=== PATIENT | female | born 1955 | race Asian ===

== ENCOUNTER 2016-08-19 00:26 | Emergency (ER) | payer OTHER ==
[~2016-08-19] VITALS: Ht 144.8 cm; Wt 52.3 kg
[~2016-08-19 00:26] MED LIST: ASPI81TA2 PO; ATEN50TA PO; LOPE1LIQ9 PO; ONDA4TAB9 PO; SIMV20TA4 PO; ZES20T PO
[2016-08-19 00:29] VITALS: BP 161/98; PULSE 91; RESP 18; O2SAT 98
--- NOTE | 2016-08-19 00:38 | ED.REPORT ---
HPI-NVD Date of Service August 19, 2016 ED Provider: Clive Mckeon MD The patient is a 60 year old female with a history of diabetes and hypertension who presents to the ED accompanied by her with diarrhea onset 1200 today. Associated symptoms include two days of diaphoresis, low back pain, generalized weakness, and nausea which has since resolved. The patient denies dysuria or other symptoms. She has no ill contacts. Six days ago the patient was placed on an antibiotic for an infected ant bite. Two days ago the patient returned from a trip to the [facility] and feels she may have eaten some bad food while on the flight home. The patient has had similar symptoms in the past. Nursing Notes Stated Complaint: DIARRHEA Chief Complaint: Female Abdominal Pain Nursing Notes Reviewed: Yes (Handshake, meds not reconciled) Allergies: Coded Allergies: codeine (Verified Adverse Reaction, Mild, Headache, 08/19/16) Scheduled Aspirin-Expunged Drug, Do Not Renew! (Aspirin-Expunged Drug, Do Not Renew!) 81 Mg Tablet 81 MG PO DAILY STARTED TODAY Atenolol-Expunged Drug, Do Not Renew! (Atenolol-Expunged Drug, Do Not Renew!) 50 Mg Tablet 100 MG PO DAILY Lisinopril-Expunged Drug, Do Not Renew! (Lisinopril-Expunged Drug, Do Not Renew! ) 20 Mg Tablet 20 MG PO DAILY Simvastatin Inactive Drug Do Not Use (Simvastatin-Expunged Drug, Choose New Med! ) 20 Mg Tablet 20 MG PO HS Scheduled PRN Loperamide Liquid (Imodium A-D Liquid) 1 Mg/7.5 Ml Liquid 1 MG PO BID PRN PRN For Diarrhea or Loose Stool Ondansetron ODT (Zofran ODT) 4 Mg Tablet 4 MG PO Q4H PRN PRN For Nausea General Time Seen by MD: 00:37 Chief Complaint Diarrhea Hx Obtained From: Patient Arrived By: Walk-in Onset Occurred: 2 days ago Symptom Duration: Since onset Location: : Other (Low back) Quality: Painful Severity: Current: Moderate Severity: Maximum: Moderate Pertinent Negative: Relieved by nothing Related History: Reports: Diabetes mellitus Recent Healthcare: No recent doctor visit Similar Sx Previous: Yes Past Medical History Past Medical History Staph infection Hypertension Reports: Diabetes mellitus Past Surgical History None reported Family History father of an aneurysm Smoking History Current Every Day Smoker Ambulatory Status Independent Review of Systems Constitutional: Reports: Weakness - generalized, Denies: Fever GI: Reports: Diarrhea, Nausea (Resolved), Denies: Vomiting Skin: Reports Diaphoresis Complete sys rev & neg: except as marked. Respiratory: Denies: Non-productive cough, Shortness of breath Female: Denies: Dysuria Musculoskeletal: Reports: Back pain Physical Exam Initial Vital Signs Vital Signs (First) Date Time Temp Pulse Resp B/P Pulse Ox O2 Delivery O2 Flow Rate FiO2 08/19/16 00:29 36.7 91 18 161/98 98 Room Air Initial VS: Reviewed, Vital signs normal Head / Eyes: Atraumatic, Normocephalic ENT: Conjunctiva normal, No scleral icterus Neck: Supple, Full range of motion Skin: Warm, Dry, No cyanosis Neurologic: Alert, Oriented, Nonfocal Psychiatric: Mood/affect normal, Behavior normal, Normal thought content General/Constitutional: Awake, Alert Fatigued Abdomen: Soft, Non-tender Lower Extremity / Pelvis / MS: No deformity Healing wound to right ankle without signs of infection Re-Eval/Medical Decision Med Decision/Clinical Course This is a 60-year-old female presents complaining of some chills, cramps, and diarrhea-up to every 30 minutes today. She just recently returned from the [facility], although from an area that is low to no risk ([place]) for malaria, and she suspicious of a food exposure on the airline Thursday night when she returned. She also is on antibiotics for recent cellulitis of the foot, with a cellulitis having resolved-she does not know the name the antibiotic. She has no previous history of C Diff risk factors. She does have a history of previous ED visit in October for November nonspecific diarrhea that resolved with supportive therapy. On exam she appears well, she is not febrile or clinically toxic. Her abdomen is soft and nontender without guarding or rebound. No evidence of an acute surgical process evident. Given the wide differential for etiologies and recent travel history, labs are being obtained. The patient is advised that the most likely process would be performing screening labs, while hoping to obtain a stool sample was sent for PCR panel which will be resulted this early afternoon. And that if the patient's blood work is normal and she continues to do well clinically, would likely discharge with a plan to follow up with a phone call with results of the PCR stool studies. Patient's agreeable and understandable to this. She is being turned over to Dr. Chen at change of shift pending laboratory. Source of Hx: Old records Re-Evaluation/Progress : Time of Eval: 02:00 Patient Status: Condition improved Re-Evaluation/Progress Note: Discussed with patient plan for transfer of care to Dr. Chen at change of shift. Counseled Regarding: Other (Transfer of care to Dr. Chen) Discharge & Departure Shift Change Sign-Out Patient Care Transferred: Yes (Dr. Chen) Discussed Complaint(s): Yes Laboratory Evaluation: Ordered, not yet done Response to Therapy: Improved Impression: Primary Impression: Diarrhea Diarrhea type: unspecified type Qualified Code: R19.7 - Diarrhea, unspecified Disposition: Home Referrals: OTHER,PHYSICIAN (PCP) Care Transferred to: Dr. Chen Care Transferred at: 01:45 Scribe Attestation Portions of this note were transcribed by Anyaa Salcido. I, Dr. Mckeon, personally performed the history, physical exam, and medical decision-making; I reviewed and confirmed the accuracy of the information in the transcribed note. Signed by: Ligia Mejía, 08/19/2016, 01:35 Clive Mckeon MD August 19, 2016 00:38 ANAYA SALCIDO August 19, 2016 00:46
[2016-08-19] MEDS ORDERED: 0.9% Sodium Chloride 1,000 ML IV ONE (00:50)
[2016-08-19 01:36] LABS: BASOPHILS % (AUTO) 0.2 % (0-3); EOSINOPHILS % (AUTO) 0 % (0-5); MONOCYTES % (AUTO) 5.6 % (4-12); Mean Corpuscular Hemoglobin 27.3 pg (27.0-35.0); Mean Corpuscular Volume 81.3 fL (81-100); NEUTROPHILS % (AUTO) 83.9 % (40-74); Platelet Count 209 bil/L (150-400)
[2016-08-19 01:49] LABS: APPEARANCE,URINE CLEAR (CLEAR,HAZY); COLOR,URINE YELLOW (YELLOW); OCCULT BLOOD,URINE NEGATIVE (NEGATIVE); UROBILINOGEN,URINE NORMAL (NORMAL)
[2016-08-19 02:50] VITALS: BP 150/78; PULSE 84; RESP 16; O2SAT 99
[2016-08-19 03:18] VITALS: BP 143/85; PULSE 86
[2016-08-19 03:20] VITALS: BP 157/90; PULSE 94
[2016-08-19 03:23] VITALS: BP 125/83; PULSE 92
[2016-08-19 03:31] VITALS: BP 125/83; PULSE 92; RESP 16; O2SAT 99
== END 2016-08-19 03:31 | disposition home or self-care (01) ==
LOC: SED 00:26
DX: R19.7 Diarrhea, unspecified (principal); M54.5 Low back pain; R53.1 Weakness; R11.0 Nausea; R61 Generalized hyperhidrosis; I10 Essential (primary) hypertension; E11.9 Type 2 diabetes mellitus without complications; F17.200 Nicotine dependence, unspecified, uncomplicated; Z88.5 Allergy status to narcotic agent
CPT/HCPCS: 36415; 80053; 81000; 83605; 85025; 87040; 87507; 96360; 99284; J7030

== ENCOUNTER 2016-08-23 06:17 | Inpatient (IN) | payer OTHER ==
[2016-08-23] VITALS (8 sets, daily range): BP systolic 88–115; BP diastolic 54–69; PULSE 69–82; RESP 16–22; O2SAT 97–100
[~2016-08-23] VITALS: Ht 144.8 cm; Wt 51.9 kg
--- NOTE | 2016-08-23 06:43 | ED.REPORT ---
HPI-Abd Pain F 40 and Over Date of Service Aug 23, 2016 ED Provider: Dm Holcomb Patient is a 60 year old female with a hx of HTN and DM who presents to the ED complaining of intermittent diarrhea onset one week ago. Her last episode of diarrhea was this morning. Associated symptoms include abdominal pain (since resolved), nausea, vomiting, back pain (since resolved), lightheadedness upon standing, hives (onset 2-3 days ago), facial swelling, and chills. She denies difficulty breathing, hematochezia, hematemesis, melena, fever, headache, dysuria, or any other symptoms. She was put on cefpodoxime for a insect bite she received in the [employer] [facility]. The bug bite was on her R foot. She came [place] the [place] before the onset of her symptoms. She was seen in the department 6 days ago for her symptoms. She takes metformin and statin daily. She has been taking Imodium and Zyrtec for her symptoms. Nursing Notes Stated Complaint: SWELLING Chief Complaint: Female Abdominal Pain Nursing Notes Reviewed: Yes Allergies: Coded Allergies: codeine (Verified Adverse Reaction, Mild, Headache, 08/23/16) Scheduled Aspirin-Expunged Drug, Do Not Renew! (Aspirin-Expunged Drug, Do Not Renew!) 81 Mg Tablet 81 MG PO DAILY STARTED TODAY Atenolol-Expunged Drug, Do Not Renew! (Atenolol-Expunged Drug, Do Not Renew!) 50 Mg Tablet 100 MG PO DAILY Lisinopril-Expunged Drug, Do Not Renew! (Lisinopril-Expunged Drug, Do Not Renew! ) 20 Mg Tablet 20 MG PO DAILY Simvastatin Inactive Drug Do Not Use (Simvastatin-Expunged Drug, Choose New Med! ) 20 Mg Tablet 20 MG PO HS Scheduled PRN Loperamide Liquid (Imodium A-D Liquid) 1 Mg/7.5 Ml Liquid 1 MG PO BID PRN PRN For Diarrhea or Loose Stool Ondansetron ODT (Zofran ODT) 4 Mg Tablet 4 MG PO Q4H PRN PRN For Nausea General Time Seen by MD: 06:42 Chief Complaint Diarrhea mild Hx Obtained From: Patient, Spouse Arrived By: Walk-in Sudden in Onset?: Yes Onset Occurred: 1 week ago Symptom Duration: Since onset Recent Healthcare: Recent doctor visit, Previous diagnosis Risk Factors )( AAA Risk Stratification Hypertension SmokingNo Prior AAA Risk factors reviewed Past Medical History Past Medical History Staph infection Hypertension hypercholesteremia Reports: Diabetes mellitus Past Surgical History Hand Reports: Appendectomy, Cholecystectomy Family History father of an aneurysm Smoking History Light Tobacco Smoker Social History Alcohol Use: Denies alcohol use (Rare) Other Social History: Good social support, Ambulatory Status Independent Review of Systems + facial swelling Constitutional: Reports: Chills, Denies: Fever Respiratory: Denies: Shortness of breath GI: Reports: Abdominal pain (Resolved ), Diarrhea, Nausea, Vomiting, Denies: Hematemesis, Hematochezia, Melena Female: Denies: Dysuria Musculoskeletal: Reports: Back pain (Resolved ) Complete sys rev & neg: except as marked. Allergy / Immune: Reports: Hives Neurologic: Reports: Lightheaded, Denies: Headache Physical Exam Vital Signs Vital Signs (First) Date Time Temp Pulse Resp B/P Pulse Ox O2 Delivery O2 Flow Rate FiO2 08/23/16 06:22 36.0 79 22 88/59 99 Room Air Initial VS: Reviewed Head / Eyes: Atraumatic, Normocephalic Neck: Full range of motion Neurologic: Alert, Oriented, Nonfocal General/Constitutional: Awake, Alert, No acute distress, Well developed Respiratory / Chest: Breath sounds NL, Breath sounds = bilat, No respiratory distress Cardiovascular: Heart rate NL, Regular rhythm, Heart sounds NL Abdomen: Soft, Non-tender Back: Atraumatic Skin: Warm, Dry Color / Condition: Positive: Rash present Rash / Lesion Notes: Hives Ankle / Foot: Neurologic intact, Vascular intact Scab on dorsum of R foot, well healed Interpretation & Diagnostics Lab Results Interpretation Result Diagram: 08/23/16 0725 08/23/16 0725 Test 08/23/16 07:25 White Blood Count 10.7th/mm3 (3.8-10.1) Red Blood Count 5.07mil/mm3 (3.90-5.20) Hemoglobin 13.6g/dL (12.0-15.6) Hematocrit 40.4% (35.0-46.0) Mean Corpuscular Volume 79.7fL (81-100) Mean Corpuscular Hemoglobin 26.8pg (27.0-35.0) Mean Corpuscular Hemoglobin Concent 33.7% (32.0-37.0) Red Cell Distribution Width 13.7% (12.3-15.4) Platelet Count 297bil/L (150-400) Neutrophils (%) (Auto) 86.8% (40-74) Lymphocytes (%) (Auto) 8.8% (14-46) Monocytes (%) (Auto) 3.0% (4-12) Eosinophils (%) (Auto) 0.7% (0-5) Basophils (%) (Auto) 0.1% (0-3) Sodium Level 128mEq/L (134-144) Potassium Level 3.9mEq/L (3.5-5.2) Chloride Level 92mEq/L (97-108) Carbon Dioxide Level 19mmol/L (18-29) Blood Urea Nitrogen 13mg/dL (8-27) Creatinine 1.23mg/dL (0.57-1.00) Estimat Glomerular Filtration Rate 63mL/min (>59) Glucose Level 211mg/dL (60-99) Lactic Acid Level 1.7mmol/L (0.4-2.0) Calcium Level 8.3mg/dL (8.5-10.1) Magnesium Level 1.6mg/dL (1.6-2.6) Total Bilirubin 1.4mg/dL (0.0-1.2) Aspartate Amino Transf (AST/SGOT) 36U/L (0-50) Alanine Aminotransferase (ALT/SGPT) 31U/L (0-32) Alkaline Phosphatase 77U/L (25-165) Total Protein 5.9g/dL (6.4-8.4) Albumin 2.9g/dL (3.4-5.0) Lipase 30U/L (13-60) ECG Interpretation ECG Interpretation: Sinus rate 76 Atrial premature complex Time: 07:06 Interpreted by: ED physician Re-Eval/Medical Decision Re-Evaluation/Progress #1: Time of Eval: 09:18 Re-Evaluation/Progress Note: Rechecked patient. She is requesting to be admitted. Discussed plan for admission. Patient understands and agrees with plan. All questions addressed at this time. Re-Evaluation/Progress #2: Time of Eval: 10:00 Re-Evaluation/Progress Note: Rechecked patient. Still unable to obtain IV. Consultation : Referral / Consult Name: Americo Cerda DO Consulted With: Hospitalist Call Returned at: 10:14 Acute Coordinator: Will see patient, Agrees with eval, Agrees with plan, Accepts admit Note: Discussed pt case. Accepts admit. Counseled Regarding: Diagnosis, Lab results, Need for admission Discharge & Departure Primary Impression: Dehydration Additional Impression: Gastroenteritis Disposition: ADMITTED TO HOSPITAL Discharge Condition All VS Reviewed: Yes Condition: Stable (ERASED) Referrals: OTHER,PHYSICIAN (PCP) (Family) Scribe Attestation Portions of this note were transcribed by Marc Shipley. I, Dr. Holcomb personally performed the history, physical exam and medical decision-making; I reviewed and confirmed the accuracy of the information in the transcribed note. Signed by: Marc Shipley 08/23/16, 1053 Dm Holcomb MD Aug 23, 2016 06:43 MARC SHIPLEY Aug 23, 2016 06:50
[2016-08-23] MEDS ORDERED: Ondansetron 2 mg/mL 2 mL Inj IVPUSH PRN (06:50)
[2016-08-23] MEDS ORDERED: Pantoprazole 4 mg/mL 10 mL Inj IVPUSH ONE (06:50)
[2016-08-23] MEDS ORDERED: 0.9% Sodium Chloride 1,000 ML IV ONE (06:50)
[2016-08-23] MEDS ORDERED: diphenhydrAMINE 25 mg Capsule PO ONE (06:55)
[2016-08-23 07:34] LABS: BASOPHILS % (AUTO) 0.1 % (0-3); EOSINOPHILS % (AUTO) 0.7 % (0-5); Mean Corpuscular Hemoglobin 26.8 pg (27.0-35.0); Mean Corpuscular Volume 79.7 fL (81-100); NEUTROPHILS % (AUTO) 86.8 % (40-74); Platelet Count 297 bil/L (150-400)
[2016-08-23] MEDS ORDERED: Ondansetron 2 mg/mL 2 mL Inj IVPUSH ONE (07:40)
[2016-08-23 07:55] LABS: Magnesium 1.6 mg/dL (1.6-2.6)
[2016-08-23] MEDS ORDERED: Sodium Chloride LOK Flush 10 mL Syringe IVFLUSH PRN ×2 (11:00)
[2016-08-23] MEDS ORDERED: Alum-Mag Hydrox-Simeth 30 mL Suspension PO PRN (11:00)
--- NOTE | 2016-08-23 12:17 | DRSVH ---
PROCEDURE: X-RAY PICC LINE PLACEMENT BY NURSE ([id number]) INDICATIONS: PICC, for dehydration/hypotension COMPARISON: None. FINDINGS: PICC was placed by the intravenous therapy team from the left side. Fluoroscopic spot maykel m demonstrates tip of PICC in the distal SVC. IMPRESSION: Tip of PICC lies within the distal SVC. Dictated by: Antoinette Momin MD, PhD on 08/23/2016 at 12:16 Approved by: Antoinette Momin MD, PhD on 08/23/2016 at 12:16
--- NOTE | 2016-08-23 12:33 | PCM.HPMED ---
Subjective Date of Service Aug 23, 2016 Primary Provider: Admitting Physician: Americo Cerda DO Primary Care Physician: Other,Physician Attending Physician: Americo Cerda DO Chief Complaint: Refractory nausea and vomiting in addition to persistent diarrhea History of Present Illness: Patient is a 60-year-old female past medical history significant for hypertension and diabetes who recently returned from the [facility] on vacation who is complaining now 1 week history of diarrhea refractory nausea with some vomiting. Has been able to tolerate almost nothing by mouth, and drinking little and eating even less. She had been seen in urgent care couple of days prior, and at that time was prescribed Zofran is provided little relief from nausea in addition to Imodium consult to help with diarrhea but also has not been effective. She denies any fever or chills however. Additional pertinent medical history includes treatment for multiple bug bites sustained in the [facility], which she sought treatment with a doctor 2 days prior to flying back to [place]. She was prescribed a first generation cephalic border for concern cellulitis on foot, but as she noted little in the way of symptoms he did not complete this course. Currently she still feels a little bit nauseated, which continue to have a loose watery stools. She denies any blood or pus in stools. Vomitus is generally recently consumed food or fluids, again denies any blood present in vomitus. She can now no sick contacts. Given having abdominal pain worse at onset but this is now improved, in addition to back pain also improved. She noted chills earlier this week as well, and at times experience sweats, and has no reported fever. Denies any palpitations or chest pain any time, denies any wheezing or shortness of breath. Review of Systems: A 10 point review of systems was conducted and entirely negative excepting pertinent positives and negatives included above history of present illness Allergies Coded Allergies: codeine (Verified Adverse Reaction, Mild, Headache, 08/23/16) Home Medications Aspirin- 81 Mg Tablet 81 MG PO DAILY Atenolol 50 Mg Tablet 100 MG PO DAILY Lisinopril 20 Mg Tablet 20 MG PO DAILY Simvastatin 20 Mg Tablet 20 MG PO HS Scheduled PRN Loperamide Liquid (Imodium A-D Liquid) 1 Mg/7.5 Ml Liquid 1 MG PO BID PRN PRN For Diarrhea or Loose Stool Ondansetron ODT (Zofran ODT) 4 Mg Tablet 4 MG PO Q4H PRN PRN For Nausea PMH Staph infection Hypertension hypercholesteremia Diabetes mellitus Surgical History Hand Appendectomy Cholecystectomy Social History Hx Alcohol Use: No Hx Substance Use: No Smoking Status: Light Tobacco Smoker Exam Vital Signs Vital Sign - Last Date Time Temp Pulse Resp B/P Pulse Ox O2 Delivery O2 Flow Rate FiO2 08/23/16 11:21 36.6 75 19 94/54 100 Room Air General: Alert, Oriented X3, Cooperative, Moderate Distress Eyes: PERRLA, EOMI Mouth: Mucous Membranes Dry Neck: Supple Chest & Lungs: Clear to auscultation & percussion, No adventitious breath sounds Cardiovascular: Regular Rate/Rhythm Abdomen: Non-tender, Non-distended Extremities: No cyanosis/clubbing/edma bilat Skin: Other (skin is dry with multiple excoriations on upper arm secondary to scratching. When he white skin visible. Some areas of induration/edema related to healing bug bites also noted on forearms/ foot though has mild irritation does not appear infected or cellulitic. ) Neurological: Grossly Neurologically Intact Lab and Diagnostics Result Diagram: 08/23/1672408/23/16724 Assessment & Plan This 60-year-old female presenting with abdominal pain and nausea and vomiting 1 week refractory to the saul therapies, admitted at this time for volume depletion and supportive care condition to further evaluation. #. Refractory nausea and vomiting with abdominal pain - Appears to be acute viral gastroenteritis, however bacterial etiology is possible - Dual studies are ordered and pending - PICC line is placed given patient's difficult IV access to provide adequate volume resuscitation #Acute renal insufficiency - Likely secondary to dehydration, prerenal azotemia - Hydrated aggressively as noted above - Continue to trend renal functions #Hyponatremia - Likely a hypovolemic hyponatremia based on presenting history - Continue to monitor with fine repletion via intravenous fluids #Pruritus secondary to insect bites - No evidence of acute infection at this time, we will not attempt to complete antibiotic course her previously prescribed - Benadryl provided for itching, addition of topical moisturizer creams to be used as needed #. Diabetes mellitus type II - Patient was placed on sliding scale insulin - Consider initiation of long-acting agent as diet is advanced. #. Hypertension/ hyperlipidemia: - We will hold all medications and setting of hypotension - Continue our resuscitation restart antihypertensives if needed. Pain Evaluation: Adequate Pain Control Resuscitation Status: CPR: Attempt Resuscitation Time spent 55 minutes Americo Cerda DO Aug 23, 2016 12:33
--- NOTE | 2016-08-23 12:58 | NUR ---
Admit Patient arrived via bed from PICC suite. Double Lumen PICC placed on L upper arm. Pt A&Ox3. C/O weakness, abdominal pain, nausea and has generalized rash all over body. VSS. is at bedside, MD assessing pt, call light is within reach.
[2016-08-23] MEDS: 0.9% Sodium Chloride 1,000 ML IV SCH (14:31)
[2016-08-23] MEDS: Ondansetron 2 mg/mL 2 mL Inj IVPUSH PRN ×2 (14:32→19:21)
[2016-08-23] MEDS: diphenhydrAMINE 25 mg Capsule PO PRN (14:32)
[2016-08-23] MEDS ORDERED: NC8176 (16:05)
[2016-08-23] MEDS ORDERED: ATOR40TA69 (16:05)
[2016-08-23] MEDS ORDERED: METF500T7 (16:05)
[2016-08-23] MEDS ORDERED: METO-274 (16:05)
[2016-08-24] VITALS (9 sets, daily range): BP systolic 121–136; BP diastolic 73–85; PULSE 85–101; RESP 16–17; O2SAT 97–99
[2016-08-24] MEDS: 0.9% Sodium Chloride 1,000 ML IV SCH (00:07)
[2016-08-24] MEDS: diphenhydrAMINE 25 mg Capsule PO PRN ×2 (02:01→18:03)
--- NOTE | 2016-08-24 04:10 | NUR ---
Diarrhea Pt continues to have diarrhea. Stool PCR is negative, Md notified and ordered imodium. Pt also continues to have itching due to rash. Given Benadryl with good relief.
[2016-08-24] MEDS: Ondansetron 2 mg/mL 2 mL Inj IVPUSH PRN ×2 (05:56→13:36)
[2016-08-24 06:13] LABS: BASOPHILS % (AUTO) 0.1 % (0-3); EOSINOPHILS % (AUTO) 0.8 % (0-5); MONOCYTES % (AUTO) 2.9 % (4-12); Mean Corpuscular Hemoglobin 27.2 pg (27.0-35.0); Mean Corpuscular Volume 79.2 fL (81-100); NEUTROPHILS % (AUTO) 82.2 % (40-74); Platelet Count 290 bil/L (150-400)
--- NOTE | 2016-08-24 08:22 | PCM.PNMED ---
Subjective Date of Service Aug 24, 2016 Subjective Patient is feeling much improved today, notes her appetite especially is better , requesting advancement she can try some soup. He still has some abdominal tenderness however, and epigastric pains which sometimes can radiate back. Stools are still been loose but less frequent. He denies any fever or chills. Exam Vital Signs Vital Sign - Last Date Time Temp Pulse Resp B/P Pulse Ox O2 Delivery O2 Flow Rate FiO2 08/24/16 06:13 99 08/24/16 05:09 37.1 16 123/73 97 Room Air Intake and Output 08/23/16 08/23/16 08/24/16 Cumulative From/Thru 15:00 23:00 07:00 08/23/16 06:22 - 08/24/16 05:11 Intake Total 420 ml 600 ml 1020 ml Output Total 350 ml 800 ml 1150 ml Balance 70 ml -200 ml -130 ml Intake Oral 120 ml 600 ml 720 ml IV Total 300 ml 300 ml Output Urine Total 350 ml 800 ml 1150 ml # Voids 3 3 # Bowel Movements 3 3 Exam General: Alert, Oriented X3, Cooperative, Moderate Distress Eyes: PERRLA, EOMI Mouth: Mucous Membranes moist Cardiovascular: Regular Rate/Rhythm Abdomen: moderately tender without guarding, Non-distended Extremities: No cyanosis/clubbing/edma bilat Neurological: Grossly Neurologically Intact IVs and Medications Medications Reviewed: Medications were reviewed in detail Lab and Diagnostics Result Diagram: 08/24/1655 08/24/16 0555 Assessment & Plan This 60-year-old female presenting with abdominal pain and nausea and vomiting 1 week refractory to the saul therapies, admitted at this time for volume depletion and supportive care condition to further evaluation. #. Refractory nausea and vomiting with abdominal pain - Now diagnosed with 2 types of gastrointestinal infection based on stool PCR, supportive care only is indicated based on species. - PICC line is placed given patient's difficult IV access to provide adequate volume resuscitation - Now given good by mouth intake we will continue when necessary medications for nausea but trial patient off intravenous fluid therapy. #Acute renal insufficiency - Likely secondary to dehydration, prerenal azotemia - Hydrated aggressively as noted above - Entirely resolved with intravenous fluid therapy - Trial off IV fluids through today, consider restarting evening if patient if intake is poor. - Continue to trend renal functions #Hyponatremia - Likely a hypovolemic hyponatremia based on presenting history - Continue to monitor with fine repletion via intravenous fluids - Now resolved overnight with volume repletion #Pruritus secondary to insect bites - No evidence of acute infection at this time, we will not attempt to complete antibiotic course her previously prescribed - Benadryl provided for itching, addition of topical moisturizer creams to be used as needed, which was highly beneficial. #. Diabetes mellitus type II - Patient placed on sliding scale insulin - Consider initiation of long-acting agent as diet is advanced. #. Hypertension/ hyperlipidemia: - We will hold all medications and setting of hypotension - Continue our resuscitation restart antihypertensives if needed. Pain Evaluation: Adequate Pain Control Resuscitation Status: CPR: Attempt Resuscitation Time spent 25 minutes Americo Cerda DO Aug 24, 2016 08:22
[2016-08-24] MEDS ORDERED: Glucose 40% Oral Gel 15 Gm Tube PO PRN (08:25)
--- NOTE | 2016-08-24 09:24 | NUR ---
Social Work-screening/readiness for discharge: Data:EMR Reviewed. Pt is a 60 y/o female who was admitted on 08/23/16 for dehydration per H&P. Pt's insurance is [employer] and PCP is at [facility]. EMR Reviewed. SW met with pt and Luis Felipe at bedside, SW role explained. Pt is alert and oriented x3. Pt resides at home with her on [place] where she remains independent with ADLs. Pt does not use any DME and drives. Pt has no HH or SNF history. SW discussed DPOA/ advanced directive, pt confirms she has not completed this and is not interested in any information. Per RN notes, pt has been up independent in her room. SW provided phone number and plan on white board in room. No discharge needs identified. SW will continue to follow if needs arise. Assessment:Pt who is independent at baseline. Plan:Pt to discharge home when medically stable via POV. No discharge needs identified. SW will continue to follow if needs arise. CLARITA Garay
[2016-08-24] MEDS: Insulin LISPRO 300 Unit/3 mL Inj SUBQ SCH ×3 (11:47→20:52)
--- NOTE | 2016-08-24 14:43 | NUR ---
Nausea / diet Patient advanced from clear liquid diet to full liquid per MD instructions. Able to tolerate applesauce, pudding, etc. with only mild nausea. Patient denies abdominal pain or discomfort. Bowel tones and active to hyperactive in all quadrants. One 4mg dose of ondansetron given after lunch per patient request. No retching or emesis observed or reported. Will continue to monitor. Bed low and locked, call light in reach, care and rounding ongoing.
[2016-08-25] VITALS (7 sets, daily range): BP systolic 123–166; BP diastolic 76–96; PULSE 85–95; RESP 16–18; O2SAT 98–99
[2016-08-25] MEDS: diphenhydrAMINE 25 mg Capsule PO PRN ×4 (00:19→21:41)
[2016-08-25 05:19] LABS: BASOPHILS % (AUTO) 0.1 % (0-3); EOSINOPHILS % (AUTO) 1.2 % (0-5); MONOCYTES % (AUTO) 4.1 % (4-12); Mean Corpuscular Hemoglobin 27.5 pg (27.0-35.0); Mean Corpuscular Volume 80.8 fL (81-100); NEUTROPHILS % (AUTO) 74.9 % (40-74); Platelet Count 311 bil/L (150-400)
--- NOTE | 2016-08-25 05:32 | NUR ---
Uneventful Night pt has been able to get sleep during the night. pt reports feeling itchy "all over", PRN Benadryl given as ordered, RN provided lotion per pt request. VSS, afebrile, on RA. PICC is SL, double lumens flushed with 10cc NS without issue. pt has been able to make needs known, call light placed within reach. hourly rounding in effect.
[2016-08-25] MEDS: Insulin LISPRO 300 Unit/3 mL Inj SUBQ SCH ×4 (08:00→21:43)
--- NOTE | 2016-08-25 12:23 | PCM.PNMED ---
Subjective Date of Service Aug 25, 2016 Subjective Patient states she is feeling okay today, but says so cautiously because she has been more nauseated this morning after breakfast. She had them well due to advanced diet slowly through evening yesterday and this morning was optimistic breakfast would go better, return trying to drink more fluids and also consume a little bit of her full liquid breakfast she noted her nausea worsens significantly, she became lightheaded, dominant pain worsened as well, she needed to lie back in bed. She endorses feeling some stress of trying to push oral fluids with the discontinuation of intravenous, as drinking large amounts of fluids as made her more nauseated. She is also been experiencing some increasing congestion and a slight cough and shortness of the back of her throat , she does deny any wheezing or shortness of breath however, denies any cough which is productive, also denies any fever chills or sweats. A rash on her body is still very itchy, no worse but is only mildly benefited by by mouth Benadryl. Exam Vital Signs Vital Sign - Last Date Time Temp Pulse Resp B/P Pulse Ox O2 Delivery O2 Flow Rate FiO2 08/25/16 10:51 95 08/25/16 09:48 36.9 16 166/88 98 Room Air Intake and Output 08/24/16 08/24/16 08/25/16 Cumulative From/Thru 15:00 23:00 07:00 08/23/16 06:22 - 08/25/16 06:45 Intake Total 1415 ml 600 ml 950 ml 3985 ml Output Total 802 ml 1300 ml 3252 ml Balance 1415 ml -202 ml -350 ml 733 ml Intake Oral 600 ml 950 ml 2270 ml IV Total 1415 ml 1715 ml Output Urine Total 802 ml 1300 ml 3252 ml # Voids 3 # Bowel Movements 1 0 4 Exam General: Alert, Oriented X3, Cooperative, Moderate Distress Eyes: PERRLA, EOMI Mouth: Mucous Membranes dry. Cardiovascular: Regular Rate/Rhythm Abdomen: moderately tender without guarding, Non-distended, hyperactive bowel sounds Extremities: No cyanosis/clubbing/edma bilat Neurological: Grossly Neurologically Intact Dermatologic: Skin is dry, eczematous, multiple excoriations on upper and lower extremities. Rash on posterior aspect of right arm is slowly improving does not appear actively infected. IVs and Medications Medications Reviewed: Medications were reviewed in detail Lab and Diagnostics Result Diagram: 08/25/16 0505 08/25/16 0505 Assessment & Plan This 60-year-old female presenting with abdominal pain and nausea and vomiting 1 week refractory to the saul therapies, admitted at this time for volume depletion and supportive care condition to further evaluation. #. Refractory nausea and vomiting with abdominal pain - Now diagnosed with 2 types of gastrointestinal infection based on stool PCR, supportive care only is indicated based on species. - PICC line is placed given patient's difficult IV access to provide adequate volume resuscitation -Given stress of maintaining adequate oral hydration therapy, and worsening nausea following breakfast, will restart intravenous fluids at a low rate to take pressure off patient to push fluids orally which appears to have created worsening nausea. - Anticipate discontinuing later today or by morning, patient's nausea continues to improve, and increased oral intake as possible. #Acute renal insufficiency - Likely secondary to dehydration, prerenal azotemia - Hydrated aggressively as noted above - Entirely resolved with intravenous fluid therapy - Continue to trend renal functions #Hypokalemia - May be progressive in the setting of continued loose stool and diarrhea, addition to poor oral intake - Deferred repletion at this time continue to monitor, though supplementation may be needed if potassium proves to be calmer trending tomorrow morning. #Hyponatremia - Likely a hypovolemic hyponatremia based on presenting history - Continue to monitor with fine repletion via intravenous fluids - Now resolved overnight with volume repletion #Pruritus secondary to insect bites - No evidence of acute infection at this time, we will not attempt to complete antibiotic course her previously prescribed - Benadryl provided for itching, addition of topical moisturizer creams to be used as needed, which was partially beneficial - We will additionally initiate topical steroid, emollient for more aggressive treatment at this fact her condition. #. Diabetes mellitus type II - Patient placed on sliding scale insulin - Consider initiation of long-acting agent as diet is advanced. #. Hypertension/ hyperlipidemia: - We will hold all medications and setting of hypotension - Continue our resuscitation restart antihypertensives if needed. Anticipated discharge in morning with improved by mouth intake without accompanying nausea, and stable electrolytes and renal function. Pain Evaluation: Adequate Pain Control GI Prophylaxis: Not indicated VTE Mechanical Devices: Anti-Embolic stockings Resuscitation Status: CPR: Attempt Resuscitation Time spent 25 minutes Americo Cerda DO Aug 25, 2016 12:23
[2016-08-25] MEDS: 0.9% Sodium Chloride 1,000 ML IV SCH (13:18)
--- NOTE | 2016-08-25 15:47 | NUR ---
Pt off floor to XRAY
--- NOTE | 2016-08-25 15:58 | DRSVH ---
PROCEDURE: X-RAY CHEST, TWO VIEWS ([id number]) INDICATIONS: productive cough TECHNIQUE: 2 views of the chest were acquired. COMPARISON: [facility], CR, XR PICC LINE PLACE BY NURSE, 08/23/2016, 10:55. [facility], CR, CHEST 2VW, 12/30/2012, 2:19. FINDINGS: Surgical changes and devices: Left PICC present tube tip projected over the mid superior vena cava. Lungs and pleura: No pleural effusions or pneumothorax. Lungs are clear. Mediastinum: Mediastinal contours are normal. Heart size is normal. Bones and chest wall: No suspicious bony abnormalities. Soft tissues appear unremarkable. IMPRESSION: Placement of left PICC and no source for cough identified radiographically. Dictated by: Michael SKINNER Interpreted: Terrance Andrade MD on 08/25/2016 at 15:56 Transcribed by: MARQUEZ on 08/25/2016 at 15:57 Approved by: Krishna Andrade M.D. on 08/25/2016 at 16:34
--- NOTE | 2016-08-25 18:29 | NUR ---
Coughing/Itching Pt reporting intermittent coughing during shift with no sputum. Coughing increased during afternoon to a persistent hacking with some discomfort, pt reports having some dark brownish colored sputum on occasion. Did not see sputum but reported to MD. Chest XRAY ordered to tao. Pt continues itching during shift. MD ordered hydrocortisone BID PRN with petroleum jelly over cream. Administered one time with pt during shift, instructed that can use another time during day and to ask nurse when desired. Pt also given PRN Benadryl as requested for itching. Pt reports itching is reduced but mildly/intermittently continues.
[2016-08-26] VITALS (7 sets, daily range): BP systolic 133–175; BP diastolic 79–107; PULSE 70–91; RESP 16–18; O2SAT 97–98
[2016-08-26] MEDS ORDERED: MeTOProlol XL 50 mg ER24 Tablet PO SCH (02:05)
--- NOTE | 2016-08-26 03:56 | NUR ---
Blood Pressure Patient's blood pressure had been slowly climbing, 174/107 at 0150. paged, new order to restart home dose of Metoprolol. Patient updated on plan, administered medication. Patient is alert and oriented, using call light appropriately, and intentional rounding in place.
[2016-08-26] MEDS: Insulin LISPRO 300 Unit/3 mL Inj SUBQ SCH ×2 (08:00→12:00)
[2016-08-26] MEDS: diphenhydrAMINE 25 mg Capsule PO PRN (08:06)
[2016-08-26] MEDS ORDERED: MeTOProlol XL 50 mg ER24 Tablet PO ONE (09:27)
[2016-08-26] MEDS: 0.9% Sodium Chloride 1,000 ML IV SCH (10:09)
--- NOTE | 2016-08-26 12:05 | PCM.DC.MED ---
Discharge Summary Date of Service Aug 26, 2016 Dates of Hospitalization Date of Hospital Admission Aug 23, 2016 at 10:31 Date of Discharge: Aug 26, 2016 Providers: Admitting Physician: Americo Cerda DO Primary Care Physician: Other,Physician Attending Physician: Americo Cerda DO Diagnosis at Time of Discharge Diagnosis at Time of Discharge Infectious diarrhea/enteritis. Resolved Allergic dermatitis secondary to insect bites. Brief History Patient is a 60-year-old female past medical history significant for hypertension and diabetes who recently returned from the [facility] on vacation who is complaining now 1 week history of diarrhea refractory nausea with some vomiting. Has been able to tolerate almost nothing by mouth, and drinking little and eating even less. She had been seen in urgent care couple of days prior, and at that time was prescribed Zofran is provided little relief from nausea in addition to Imodium consult to help with diarrhea but also has not been effective. She denies any fever or chills however. Additional pertinent medical history includes treatment for multiple bug bites sustained in the [facility], which she sought treatment with a doctor 2 days prior to flying back to [place]. She was prescribed a first generation cephalic border for concern cellulitis on foot, but as she noted little in the way of symptoms he did not complete this course. Currently she still feels a little bit nauseated, which continue to have a loose watery stools. She denies any blood or pus in stools. Vomitus is generally recently consumed food or fluids, again denies any blood present in vomitus. She can now no sick contacts. Given having abdominal pain worse at onset but this is now improved, in addition to back pain also improved. She noted chills earlier this week as well, and at times experience sweats, and has no reported fever. Denies any palpitations or chest pain any time, denies any wheezing or shortness of breath. Hospital Course #. Refractory nausea and vomiting with abdominal pain - Now diagnosed with 2 types of gastrointestinal infection based on stool PCR, supportive care only is indicated based on species. - PICC line is placed given patient's difficult IV access to provide adequate volume resuscitation -= Patient's diet was advanced as tolerated, she demonstrates significant improvement with intravenous fluid therapy, but had some difficulty increasing her oral intake which could induced nausea with larger meals or consumption of larger amount of water. This improved by hospital day 2, at which time she was discharged home in medical stable condition. Imodium is recommended as needed for diarrhea. No antibiotic therapy was indicated based on diagnosis. #Acute renal insufficiency - Likely secondary to dehydration, prerenal azotemia - Hydrated aggressively as noted above - Entirely resolved with intravenous fluid therapy - Stable at time of discharge #Hypokalemia - May be progressive in the setting of continued loose stool and diarrhea, addition to poor oral intake - Deferred repletion at this time continue to monitor, though supplementation may be needed if potassium proves to be calmer trending tomorrow morning. - Offered oral potassium supplement on discharge the patient declined, preferring option of consuming 2-3 bananas per day which should equal approximately 10-20 mEq and be sufficient to replete potassium stores with resolving diarrhea. #Hyponatremia - Likely a hypovolemic hyponatremia based on presenting history - Continue to monitor with fine repletion via intravenous fluids - Now resolved overnight with volume repletion #Pruritus secondary to insect bites - No evidence of acute infection at this time, we will not attempt to complete antibiotic course her previously prescribed - Benadryl provided for itching, addition of topical moisturizer creams to be used as needed, which was partially beneficial - We will additionally initiate topical steroid, emollient for more aggressive treatment. - This was continued at time of discharge. #. Diabetes mellitus type II - Patient placed on sliding scale insulin - Stable blood sugars throughout hospitalization - Restarted on medications on day of discharge. #. Hypertension/ hyperlipidemia: - We will hold all medications and setting of hypotension - Restarted all home medications on discharge. Exam Vital Signs (Last) Date Time Temp Pulse Resp B/P Pulse Ox O2 Delivery O2 Flow Rate FiO2 08/26/16 10:32 70 08/26/16 09:39 36.4 16 133/84 98 Room Air Exam General: Alert, Oriented X3, Cooperative, no acute Distress Eyes: PERRLA, EOMI Mouth: Mucous Membranes moist. Cardiovascular: Regular Rate/Rhythm Abdomen: Nontender without guarding, Non-distended, normoactive bowel sounds Extremities: No cyanosis/clubbing/edema bilat Neurological: Grossly Neurologically Intact Dermatologic: Skin is dry, eczematous, greatly improved since admission.Still present but also improving are multiple excoriations on upper and lower extremities. Rash on posterior aspect of right arm is slowly improving does not appear actively infected. Test 08/23/16 07:25 08/25/16 05:05 08/26/16 04:45 Lactic Acid Level 1.7mmol/L (0.4-2.0) Magnesium Level 1.6mg/dL (1.6-2.6) Total Bilirubin 1.4mg/dL (0.0-1.2) Aspartate Amino Transf (AST/SGOT) 36U/L (0-50) Alanine Aminotransferase (ALT/SGPT) 31U/L (0-32) Alkaline Phosphatase 77U/L (25-165) Total Protein 5.9g/dL (6.4-8.4) Albumin 2.9g/dL (3.4-5.0) Lipase 30U/L (13-60) White Blood Count 7.2th/mm3 (3.8-10.1) Red Blood Count 4.11mil/mm3 (3.90-5.20) Hemoglobin 11.3g/dL (12.0-15.6) Hematocrit 33.2% (35.0-46.0) Mean Corpuscular Volume 80.8fL (81-100) Mean Corpuscular Hemoglobin 27.5pg (27.0-35.0) Mean Corpuscular Hemoglobin Concent 34.0% (32.0-37.0) Red Cell Distribution Width 13.4% (12.3-15.4) Platelet Count 311bil/L (150-400) Neutrophils (%) (Auto) 74.9% (40-74) Lymphocytes (%) (Auto) 19.1% (14-46) Monocytes (%) (Auto) 4.1% (4-12) Eosinophils (%) (Auto) 1.2% (0-5) Basophils (%) (Auto) 0.1% (0-3) Sodium Level 143mEq/L (134-144) Potassium Level 3.0mEq/L (3.5-5.2) Chloride Level 106mEq/L (97-108) Carbon Dioxide Level 25mmol/L (18-29) Blood Urea Nitrogen 4mg/dL (8-27) Creatinine 0.34mg/dL (0.57-1.00) Estimat Glomerular Filtration Rate 279mL/min (>59) Glucose Level 128mg/dL (60-99) Calcium Level 7.7mg/dL (8.5-10.1) Discharge Medications Discharge Medications Aspirin-Expunged Drug, Do Not Renew! (Aspirin-Expunged Drug, Do Not Renew!) 81 Mg Tablet 81 MG PO DAILY (Reported) STARTED TODAY As needed Loperamide Liquid (Imodium A-D Liquid) 1 Mg/7.5 Ml Liquid 1 MG PO BID PRN PRN For Diarrhea or Loose Stool Prescribed by: JOSE ELIAS DAVENPORT MD Ondansetron ODT (Zofran ODT) 4 Mg Tablet 4 MG PO Q4H PRN PRN For Nausea Prescribed by: JOSE ELIAS DAVENPORT MD Miscellaneous Medications Atorvastatin Calcium (Atorvastatin Calcium) 40 Mg Tablet (Reported) Benazepril (Benazepril) 10 Mg Tablet (Reported) Metformin ER (Metformin ER) 500 Mg Tablet (Reported) Metoprolol Succinate ER (Metoprolol Succinate ER) 100 Mg Tab.er.24h (Reported) Followup Plan Disposition: May return home and restart all medications Imodium may be considered as needed for diarrhea Follow-up with her primary care doctor within 1 week to recheck potassium levels in for hospital follow-up Discharge Diet: No restrictions, Diabetic Discharge Activity: No restrictions Follow-up with PCP in: 1 week Time spent 35 minutes Americo Cerda DO Aug 26, 2016 12:05
--- NOTE | 2016-08-26 12:08 | PCM.DIMED ---
Discharge Instructions Date of Service Aug 26, 2016 Dates of Hospitalization Aug 23, 2016 at 10:31 Discharge Diagnosis Discharge Diagnosis Infectious diarrhea/enteritis. Resolved Allergic dermatitis secondary to insect bites. Diet Discharge Diet: No restrictions, Diabetic Activity Discharge Activity: No restrictions Patient Instructions Patient Instructions You may advance your diet as tolerated. I would additionally recommend consuming 2 bananas per day for the next week to assure you get enough potassium , your levels were a little bit low during hospitalization. Try to consume as many fluids as possible especially water, goal of about 8-10 glasses a day for the next couple of days. Follow-up with primary care doctor in 1 week to recheck electrolytes and also for hospital follow-up. Follow-up with PCP in: 1 week Americo Cerda DO Aug 26, 2016 12:08
--- NOTE | 2016-08-26 13:28 | NUR ---
Social Work-discharge: Data:EMR reviewed. Pt is on day 3 of hospitalization for dehydration per H&P. Pt is medically stable for discharge. Pt has been up independent in her room. No discharge needs identified. All updated and agreeable to plan. Assessment:Pt who is independent at baseline. Plan:Pt to discharge home today via POV. No discharge needs identified. All updated and agreeable to plan. CLARITA Garay
--- NOTE | 2016-08-26 14:46 | NUR ---
Discharge Reviewed discharge paperwork, care notes with pt - disclaimer signed. PICC line DCd by IV therapy. Tele Removed and all belongings with pt. Pt reports minor Headache 2/10 pain and denies SOB. Pt escorted out of hospital in WC. driving home.
== END 2016-08-26 14:30 | disposition home or self-care (01) | DRG 372 ==
LOC: SED 06:17 → MPC 10:31
PROVIDERS: ADMIT Family Medicine; ATTEND Family Medicine
DX: A04.4 Other intestinal Escherichia coli infections (principal); E87.1 Hypo-osmolality and hyponatremia; E87.6 Hypokalemia; E86.0 Dehydration; I10 Essential (primary) hypertension; E11.9 Type 2 diabetes mellitus without complications; E78.00 Pure hypercholesterolemia, unspecified; E78.5 Hyperlipidemia, unspecified; L29.8 Other pruritus; Z79.82 Long term (current) use of aspirin